=== PATIENT | male | born 1950 | race African-American/Black ===

== ENCOUNTER → 2020-06-29 | Emergency (ER) | payer SELFPAY ==
[~2020-06-29] VITALS: Ht 172.7 cm; Wt 99.8 kg
[~2020-06-29] MED LIST: DOBUTamine 1000MCG/ML 250 ML IV ONE; EPINEPHrine HCL 1 MG/10 ML SYRG ONE; EPINEPHrine HCL 250 ML IV SCH; FUROSEMIDE 20 MG/2 ML VIAL ONE; SODIUM BICARBONATE 8.4 % INJ 50ML VIAL IV ONE
== END | disposition expired ==
LOC: ER 07:03 → EDBD 07:03
DX: I46.9 Cardiac arrest, cause unspecified (principal); J96.01 Acute respiratory failure with hypoxia
CPT/HCPCS: 31500; 36556; 92950; 99285; J0171; J1250; J1940